=== PATIENT | male | born 1985 | race Caucasian/White ===

== ENCOUNTER 2020-04-19 11:25 | Emergency (ER) | payer OTHER ==
[2020-04-19 12:01] VITALS: BP 147/55; PULSE 85; TEMP 98.1; BMI 40.4
== END 2020-04-19 14:11 | disposition home or self-care (01) ==
LOC: JER 11:25
DX: Z03.818 Encounter for observation for suspected exposure to other biological agents ruled out (principal)
CPT/HCPCS: 99283-25; C9803; U0003